=== PATIENT | female | born 1935 | race Caucasian/White ===

== ENCOUNTER 2016-10-02 08:34 | Day surgery (SDC) | payer MEDICARE, BC ==
[~2016-10-02 08:34] MED LIST: Lactated Ringers 1,000 ML IV SCH
[2016-10-02] MEDS ORDERED: Citric Acid/Sodium Citrate Solution 30 ML Cup PO ONE (10:43)
[2016-10-02] MEDS ORDERED: Propofol 200 MG/20 ML SDV ONE ×2 (10:55→11:52)
[2016-10-02 12:57] VITALS: BP 140/63
--- NOTE | 2016-10-02 20:37 | OR ---
PREOPERATIVE DIAGNOSIS: Esophageal stricture with dysphagia. POSTOPERATIVE DIAGNOSES: Esophageal stricture, hiatal hernia, and dilation to 20 mm. PROCEDURE PROPOSED: Esophagogastroduodenoscopy. PROCEDURE DONE: 1. Esophagogastroduodenoscopy. 2. Endoscopic esophageal balloon dilatation. INDICATION: This is an 81-year-old female with known esophageal problems. She has been dilated 2 or 3 times previously and the last one was about close to 2 years ago. She has been having some dysphagia now for the last several months with food sticking in, need for regurgitation, and was felt and she needs to be re-scoped. TECHNIQUE: The patient was in the endoscopy suite in the left lateral decubitus position. She was sedated per STAVE CUTTER with propofol. The flexible video gastroscope was then passed transorally and under visualization advanced well into the duodenum. The duodenum and the duodenal bulb were unremarkable. The antrum and body of the stomach looked quite normal and healthy. She did have a small hiatal hernia and an esophageal stricture that I felt needed to be dilated. Under endoscopic guidance, a balloon dilator was passed sized 18 mm to 20 mm. I then had my expanded function dental assistant inflate the balloon with saline to the 18 mm tyler and held there for a while followed by the 19 mm tyler and then dilated around to 20 mm. There was some fracturing of the stenosis with some mild bleeding. She seemed to tolerate the procedure very well. The scope and balloon were then removed and the remainder of esophagus was normal. FINAL DIAGNOSIS: 1. Esophageal stricture with hiatal hernia. 2. Balloon dilatation to 20 mm. PLAN: The patient is already on Prilosec and needs to keep taking that and potentially may need repeat dilatation in the future. PREOPERATIVE DIAGNOSIS: History of colon cancer, 27 years ago. POSTOPERATIVE DIAGNOSES: Colonic polyps x2; and mild diverticulosis. PROCEDURE PROPOSED: Total flexible colonoscopy. PROCEDURE DONE: Total flexible colonoscopy with polypectomy x2. INDICATION: This is an 81-year-old female, who has been evaluated because of a history of colon cancer. She has had multiple colonoscopies, her last one was probably 3 to 4 years ago. TECHNIQUE: The patient was already sedated per STAVE CUTTER with propofol. The flexible video colonoscope was then passed transanally and under visualization was advanced through the previous anastomosis area in the sigmoid colon from previous sigmoid resection. I then advanced the scope all the way to the cecum. Examination revealed a normal ascending and transverse colon. In the descending colon, at about 65 cm, there was an adenomatous polyp, removed by hot snare technique and retrieved with suction. There was a second polyp at about 40 cm, again probably in the descending colon, removed by hot snare technique and retrieved with suction. The anastomosis appeared to be at about 15 cm margin from previous sigmoid resection. She did have some diverticulosis in that area, but no signs of any cancer or other worrisome findings. The scope was then withdrawn. The patient tolerated the procedure well. IMPRESSION: 1. Left colon polyps x2, removed. 2. History of previous sigmoid resection for colon cancer. 3. Mild diverticulosis. PLAN: She will be sent a letter with Pathology report on the polyps, but I felt that at her age, she does not need any future colonoscopic exams. SCM: 10/02/2016 12:19:16 MODL: 10/02/2016 16:27:55 /[id number]
--- NOTE | 2016-10-16 11:27 | LETTER ---
10/16/2016 Antonette Linares RE: ANTONETTE LINARES : 1935 Dear Antonette, The polyps removed from your colon were benign tubular adenomas. These are considered precancerous-type polyps, but they were small, and there were no worrisome changes within the polyps and based on your age, I do not feel you need any future examinations. Respectfully,
== END 2016-10-02 13:40 | disposition home or self-care (01) ==
LOC: VM.SDS 08:34
PROVIDERS: ATTEND Surgery
DX: D12.6 Benign neoplasm of colon, unspecified (principal); K22.2 Esophageal obstruction; K44.9 Diaphragmatic hernia without obstruction or gangrene; K57.30 Diverticulosis of large intestine without perforation or abscess without bleeding; Z86.010 Personal history of colon polyps; I10 Essential (primary) hypertension; E78.5 Hyperlipidemia, unspecified; K21.9 Gastro-esophageal reflux disease without esophagitis; F41.9 Anxiety disorder, unspecified; E55.9 Vitamin D deficiency, unspecified; Z88.2 Allergy status to sulfonamides; Z88.8 Allergy status to other drugs, medicaments and biological substances; Z79.82 Long term (current) use of aspirin; Z79.899 Other long term (current) drug therapy; Z90.49 Acquired absence of other specified parts of digestive tract; Z90.710 Acquired absence of both cervix and uterus; Z96.612 Presence of left artificial shoulder joint; Z96.611 Presence of right artificial shoulder joint
CPT/HCPCS: 00810; 43249; 45385; A9270; C1726; J2704; J7120; 88305

== ENCOUNTER 2017-10-09 07:44 | Day surgery (SDC) | payer MEDICARE, BC ==
[2017-10-09] MEDS ORDERED: Propofol 200 MG/20 ML SDV ONE ×2 (08:52→10:00)
[2017-10-09 11:27] VITALS: BP 159/73
--- NOTE | 2017-10-09 12:50 | OR ---
DATE OF SURGERY: 10/09/2017. REFERRING PROVIDER: Elen Pham MD. PRE-OPERATIVE DIAGNOSES: 1. History of colon cancer of the sigmoid colon, back in 1979. 2. History of polyps. 3. Increased CEA level recently. The patient's last colonoscopy was on 09/2016. POST-OPERATIVE DIAGNOSES: 1. Moderate internal and external hemorrhoids. 2. Minimal diverticulosis. 3. Otherwise, normal colon and distal ilium. PROCEDURE: Procedure. SURGEON: Broderick Salgado M.D. ANESTHESIA: Monitored anesthesia care. BOWEL PREP: Good. Mariella is an 82-year-old female who was brought to the endoscopy suite after discussing risks and benefits of the procedure. Informed consent was obtained for conscious sedation and colonoscopy with or without biopsy and/or polypectomy. We also discussed possibility of missed lesions. Pre-procedure exam was unremarkable. IV, oxygen, and monitors were placed. The patient was placed in the left lateral decubitus position. Sedation was administered and a digital rectal exam was remarkable for moderate external hemorrhoids, not acutely inflamed. Colonoscope was passed into the rectum and slowly advanced all the way to the cecum. Cecum was viewed and photographed. Distal ileum was intubated and normal in appearance. The patient did have some minimal scattered diverticulosis on the way out. The colonoscope was slowly withdrawn and the mucosa was closed observed in a direct circumferential manner. The ascending colon was unremarkable. The transverse colon was unremarkable. The descending colon was unremarkable. The sigmoid colon was unremarkable. Retroflexion was performed and rectal mucosa was remarkable for some moderate internal hemorrhoids, not acutely inflamed. Scope was removed. The patient tolerated the procedure well. The patient was monitored until that baseline status. Discharge instructions were reviewed and the patient was discharged in good condition. COMPLICATIONS: None. TOTAL TIME: 16 minutes. ESTIMATED BLOOD LOSS: None. RECOMMENDATIONS/FOLLOW-UP: The patient can likely be done with colonoscopies at this point barring any significant change in stool symptoms. I would like to kindly thank, Dr. Pham, for this referral. DMB: 10/09/2017 10:55:49 MODL: 10/09/2017 12:41:05 /[id number]
--- NOTE | 2017-10-09 15:06 | OR ---
SURGERY DATE: 10/09/2017. REFERRING PROVIDER: Elen Pham MD. PRE-OPERATIVE DIAGNOSES: 1. History of hiatal hernia with gastroesophageal reflux disease despite being on omeprazole 20 mg daily. 2. Dysphagia, chronic, recurrent. The patient subjectively feels this in the upper chest area. She is status post balloon dilatation in 09/2016 for esophageal stricture. Symptoms seem to be worse at night. POST-OPERATIVE DIAGNOSES: 1. A 3 to 4 cm sliding-type hiatal hernia noted with lower esophageal stricture at the proximal end of the hiatal hernia. There was some mild esophagitis noted to this area as well. Balloon dilation was performed from 18 up to 19 mm. 2. 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 Biopsies taken from the mid esophagus. 3. Antral biopsies taken for Helicobacter pylori and path. Some minimal bile reflux noted in the stomach. PROCEDURE: EGD with cold biopsy x2 locations (antrum and midesophagus) using cold forceps. Balloon dilatation also performed to lower esophageal stricture up to 19 mm in diameter. SURGEON: Broderick Salgado M.D. ANESTHESIA: Monitored anesthesia care. DESCRIPTION OF PROCEDURE: Mariella is an 82-year-old female, who was brought to the endoscope suite after discussion of risks and benefits (including but not limited to reaction to medication, bleeding, infection, aspiration, perforation). Informed consent was obtained for monitored anesthesia care and esophagogastroduodenoscopy along with possible biopsy and/or dilatation. Pre-procedure exam including oral cavity was unremarkable. IV, oxygen, and monitors were placed. Topical anesthesia consisting of Cetacaine spray was used in the pharynx. Patient was placed in the left lateral position and sedation was administered. A bite block was placed gently and scope lightly lubricated and passed through the bite block and over the tongue. Hypopharynx and vocal cords were visualized and unremarkable. Scope was passed in the distal esophagus. The scope was then passed through the distal esophagus and the GE junction was visualized and photographed. The GE junction was remarkable for 3 to 4 cm sliding-type hiatal hernia with mild esophageal stricture as well as mild esophagitis noted at the Z-line. On the way out, balloon dilation was performed from 18 mm up to 19 mm. The area did become mildly irritated, so we did not dilate any further. Vocal cords were visualized and unremarkable. The scope was advanced into the stomach and gastric haas was suctioned. Pylorus was identified and intubated and then the scope was advanced to the third portion of the duodenum. The second and third portions of duodenum were unremarkable. Duodenal bulb visualized and unremarkable. The duodenal bulb was visualized and unremarkable. The scope was brought back into the stomach. The pylorus and antrum were unremarkable. Biopsies taken for H. pylori and path. The scope was retroflexed to visualize the angularis, fundus, body, and cardia. These were unremarkable except it did show a good view of the sliding-type hiatal hernia. The stomach was desufflated of air and then the scope was slowly withdrawn, and the esophagus was closely visualized during withdrawal all the way into the posterior pharynx. The mid esophagus did reveal some glycogenic acanthosis. Biopsies taken of the midesophagus to check for any eosinophilic esophagitis. The patient tolerated the procedure well and went to recovery in stable condition. The patient was monitored until at baseline status. Findings and discharge instructions were reviewed and the patient was discharged in good condition. COMPLICATIONS: None. TOTAL TIME: 18 minutes. ESTIMATED BLOOD LOSS: 1 to 2 mL. RECOMMENDATIONS/FOLLOW-UP: We will await results of path reports. I would like to have the patient increase her Prilosec to 20 mg twice a day for better control of evening and nighttime symptoms and help resolve her mild esophagitis seen as well as to prevent recurrent esophageal stricture. We will have the patient hold her aspirin for 3 days just to limit any chance of bleeding. I would like to thank Dr. Pham for this referral. DMB: 10/09/2017 10:51:56 MODL: 10/09/2017 13:01:01 /[id number]
== END 2017-10-09 13:05 | disposition home or self-care (01) ==
LOC: VM.SDS 07:44
PROVIDERS: ATTEND Family Medicine
DX: Z12.11 Encounter for screening for malignant neoplasm of colon (principal); K57.30 Diverticulosis of large intestine without perforation or abscess without bleeding; K64.8 Other hemorrhoids; K64.4 Residual hemorrhoidal skin tags; K22.2 Esophageal obstruction; K22.8 Other specified diseases of esophagus; K29.50 Unspecified chronic gastritis without bleeding; K44.9 Diaphragmatic hernia without obstruction or gangrene; I10 Essential (primary) hypertension; E78.00 Pure hypercholesterolemia, unspecified; K21.9 Gastro-esophageal reflux disease without esophagitis; F41.9 Anxiety disorder, unspecified; F51.01 Primary insomnia; E55.9 Vitamin D deficiency, unspecified; Z85.038 Personal history of other malignant neoplasm of large intestine; Z86.010 Personal history of colon polyps; Z79.82 Long term (current) use of aspirin; Z79.899 Other long term (current) drug therapy; Z88.2 Allergy status to sulfonamides; Z88.8 Allergy status to other drugs, medicaments and biological substances; Z98.890 Other specified postprocedural states
CPT/HCPCS: 00813; 43239; 43249; G0105; J2704; J7120

== ENCOUNTER 2020-08-15 14:42 | Emergency (ER) | payer MEDICARE, BC ==
[2020-08-15 14:49] VITALS: BP 120/70; PULSE 93
--- NOTE | 2020-08-16 21:35 | EDM.PDOC ---
ED HPI GENERAL MEDICAL PROBLEM - General Chief Complaint: Upper Extremity Injury/Pain Stated Complaint: FELL LACERATION TO HAND Time Seen by Provider: 08/15/20 14:50 Source of Information: Reports: Patient History Limitations: Reports: No Limitations - History of Present Illness INITIAL COMMENTS - FREE TEXT/NARRATIVE: Patient comes emergency department today with complaints of a fall. Just prior to arrival the patient was at home when she reports that she lost her balance fell landing on her left hand. She did hit her left cheek on the ground as well. She did not lose conscious. She has no head neck or back pain. She has no visual acuity change just. Prior to her fall she did not have any weakness dizziness lightheadedness potation's or syncope. She has been asymptomatic prior to her fall. She just feels like she lost her balance tripped and fell. She complains of a skin tear to her left wrist and her left thumb. She denies any pain of her hand wrist or forearm. No visual acuity changes. No nausea no vomiting. No confusion. No paresthesias of her upper or lower extremities. No change in the functionality of her upper or lower extremities. Right Head Pain Score (Numeric/FACES): 2 - Related Data Allergies Allergy/AdvReac Type Severity Reaction Status Date / Time magnesium citrate Allergy Cannot Verified 08/15/20 14:51 [From Citroma] Remember Sulfa (Sulfonamide Allergy Rash Verified 08/15/20 14:51 Antibiotics) Home Meds: Home Meds Aspirin [Halfprin] 81 mg PO DAILY 08/05/13 [History] Benazepril [Lotensin] 10 mg PO DAILY 08/05/13 [History] Cholecalciferol (Vitamin D3) [Vitamin D] 1,000 units PO DAILY 08/05/13 [History] Docusate Sodium [Colace] 100 mg PO ASDIRECTED PRN 08/05/13 [History] Lutein/Minerals/Vit A,C & E [Ocuvite] 1 tab PO DAILY 08/05/13 [History] Omeprazole 20 mg PO DAILY 08/05/13 [History] Triamterene/Hydrochlorothiazid [Dyazide 37.5-25] 1 cap PO DAILY 08/05/13 [History] allopurinoL [Zyloprim] 100 mg PO DAILY 08/05/13 [History] ALPRAZolam [Xanax] 0.25 mg PO ASDIRECTED 09/30/16 [History] Acetaminophen/Diphenhydramine [Tylenol Pm Ex-Strength Caplet] 2 tab PO BEDTIME 09/30/16 [History] Past Medical History HEENT History: Reports: Cataract Cardiovascular History: Reports: High Cholesterol, Hypertension Respiratory History: Reports: None Gastrointestinal History: Reports: Chronic Constipation, Colon Polyp, Diverticulosis, Fecal Incontinence, GERD, Hiatal Hernia Other Gastrointestinal History: malignant neoplasm of colon,. 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 FATIGUE Neurological History: Reports: None Psychiatric History: Reports: Anxiety Other Psychiatric History: insomnia, anorexia, claustrophobia. INSOMNIA. CLAUSTROPHOBIA Endocrine/Metabolic History: Reports: Vitamin D Deficiency Other Hematologic History: vit d deficiency Immunologic History: Reports: None Oncologic (Cancer) History: Reports: Cervix, Colon Dermatologic History: Reports: None - Past Surgical History Head Surgeries/Procedures: Reports: None Cardiovascular Surgical History: Reports: None GI Surgical History: Reports: Appendectomy, Cholecystectomy, Colon, Colonoscopy, EGD Female Surgical History: Reports: Breast Biopsy, Hysterectomy Endocrine Surgical History: Reports: None Musculoskeletal Surgical History: Reports: Carpal Tunnel, Shoulder Replacement, Shoulder Surgery, Other (See Below) Other Musculoskeletal Surgeries/Procedures:: TRIGGER FINGER RELEASE Oncologic Surgical History: Reports: Biopsy of Breast Social & Family History - Tobacco Use Tobacco Use Status *Q: Unknown Ever Used Tobacco Review of Systems - Review of Systems Review Of Systems: Comprehensive ROS is negative, except as noted in HPI. ED EXAM, GENERAL - Physical Exam Exam: See Below Exam Limited By: No Limitations General Appearance: Alert, WD/WN, No Apparent Distress Eye Exam: Bilateral Eye: EOMI, PERRL Ears: Normal External Exam, Normal TMs Nose: Normal Inspection Throat/Mouth: Normal Inspection, Normal Lips, Normal Oropharynx, Normal Voice Head: Atraumatic, Normocephalic, Other (other than a small ecchymotic region on the left zygomatic arch. There is no bruising swelling ecchymosis bony deformity or crepitus. Rest of the face is atraumatic.) Neck: Normal Inspection, Supple, Non-Tender, Full Range of Motion. No: Tender Lateral, Tender Midline Respiratory/Chest: No Respiratory Distress, Lungs Clear, Chest Non-Tender Cardiovascular: Normal Peripheral Pulses, Regular Rate, Rhythm GI/Abdominal: Normal Bowel Sounds, Soft, Non-Tender Back Exam: Normal Inspection, Full Range of Motion Extremities: Normal Range of Motion, No Pedal Edema, Normal Capillary Refill, Other (Similarly to the left thumb there is a 1.5 cm superficial skin tear with some ecchymosis surrounding it. She is able to flex and extend at the MCP joint and IP joint of the left thumb. CMS is intact appropriately. There is no bony deformities tenderness or crepitus.). No: Normal Inspection (On the dorsal aspect of the left wrist there is a transverse 2.5 cm superficial skin tear with some ecchymosis around it. She is able to flex and extend at the wrist. There is no swelling or pain in the wrist.) Neurological: Alert, Oriented, CN II-XII Intact, Normal Cognition, Normal Gait, No Motor/Sensory Deficits Psychiatric: Normal Affect, Normal Mood Skin Exam: Warm, Dry, Intact, Normal Color, No Rash Lymphatic: No Adenopathy ED TRAUMA EXTREMITY PROCEDURES - Laceration/Wound Repair Left Digit - 5th (Baby) Lac/Wound Length In cm: 1.5 Appearance: Superficial (skin tear), Clean Distal NVT: Neuro & Vascular Intact Closed With: Steri-Strips Tetanus Status Addressed: Yes Left Wrist Lac/Wound Length In cm: 2.5 Appearance: Superficial (skin tear) Distal NVT: Neuro & Vascular Intact Closed With: Steri-Strips Course - Vital Signs Last Recorded V/S: Last Vital Signs Temp 97.9 F 08/15/20 14:44 Pulse 93 08/15/20 14:44 Resp 16 08/15/20 14:44 BP 120/70 08/15/20 14:44 Pulse Ox 100 08/15/20 14:44 Departure - Departure Time of Disposition: 16:00 Disposition: Home, Self-Care 01 Clinical Impression: Skin tear, Facial contusion Fall Qualifiers: Encounter type: initial encounter Qualified Code(s): W19.XXXA - Unspecified fall, initial encounter - Discharge Information Referrals: Elen Pham MD [Primary Care Provider] - Forms: ED Department Discharge Additional Instructions: See written discharge instructions. Sepsis Event Note (ED) - Evaluation Sepsis Screening Result: No Definite Risk
== END 2020-08-15 15:40 | disposition home or self-care (01) ==
LOC: VM.ED 14:42
DX: S61.217A Laceration without foreign body of left little finger without damage to nail, initial encounter (principal); S00.83XA Contusion of other part of head, initial encounter; E78.00 Pure hypercholesterolemia, unspecified; I10 Essential (primary) hypertension; K21.9 Gastro-esophageal reflux disease without esophagitis; Z79.82 Long term (current) use of aspirin; Z79.899 Other long term (current) drug therapy; Z88.2 Allergy status to sulfonamides; Z88.8 Allergy status to other drugs, medicaments and biological substances; W18.09XA Striking against other object with subsequent fall, initial encounter; Y92.009 Unspecified place in unspecified non-institutional (private) residence as the place of occurrence of the external cause
CPT/HCPCS: 99283

== ENCOUNTER 2023-05-15 10:26 | Inpatient (IN) | payer MEDICARE, OTHER ==
[2023-05-15 11:57] LABS: APPEARANCE,URINE CLOUDY (CLEAR); BILIRUBIN,URINE NEGATIVE (NEGATIVE); COLOR,URINE YELLOW (YELLOW); GLUCOSE,URINE NEGATIVE (NEGATIVE); KETONES,URINE NEGATIVE (NEGATIVE); LEUKOCYTE ESTERASE,URINE TRACE (NEGATIVE); NITRITE,URINE POSITIVE (NEGATIVE); OCCULT BLOOD,URINE TRACE-INTACT (NEGATIVE); PROTEIN,URINE NEGATIVE (NEGATIVE); UROBILINOGEN,URINE 0.2 EU/dL (0.2)
[2023-05-15 12:08] LABS: BACTERIA,URINE MODERATE /HPF (NOT SEEN); RBC,URINE 0-5 /HPF (NOT SEEN); SQUAMOUS EPITHELIAL CELLS,UR MODERATE /HPF (NOT SEEN)
[2023-05-15] MEDS: Sodium Chloride 0.9% 1,000 ML IV SCH (12:39)
[2023-05-15] MEDS: Nitrofurantoin Monohydrate/Macrocrystalline 100 MG Cap PO SCH (15:28)
[2023-05-15] MEDS: Acetaminophen 325 MG Tab PO PRN (15:38)
[2023-05-15] MEDS: Omeprazole 20 MG Cap.CR PO SCH (17:06)
[2023-05-15] MEDS: Melatonin 3 MG Tab PO SCH (20:13)
[2023-05-16 05:07] LABS: % TRANSFERRIN SAT 14.7 % (20.0-50.0)
[2023-05-16 06:58] LABS: BASOPHILS PERCENT AUTO 0.3 % (0.2-1.2); EOSINOPHILS ABSOLUTE AUTO 0.1 x10^3/uL (0.0-0.5); EOSINOPHILS PERCENT AUTO 3.5 % (0.0-4.0); HEMATOCRIT 28.6 % (33.0-47.0); HEMOGLOBIN 9.6 g/dL (12.0-16.0); IMMATURE GRAN ABSOLUTE AUTO 0.01 x10^3/uL (0.00-0.07); LYMPHOCYTES ABSOLUTE AUTO 0.9 x10^3/uL (1.0-4.8); LYMPHOCYTES PERCENT AUTO 22.6 % (25.0-50.0); MEAN CORPUSCULAR HEMOGLOBIN 32.5 pg (26.0-32.0); MEAN CORPUSCULAR HGB CONC 33.6 g/dL (32.0-36.0); MEAN CORPUSCULAR VOLUME 96.9 fL (78.0-93.0); MONOCYTES ABSOLUTE AUTO 0.4 x10^3/uL (0.0-0.8); MONOCYTES PERCENT AUTO 10.4 % (2.0-11.0); NEUTROPHILS ABSOLUTE AUTO 2.4 x10^3/uL (1.8-7.7); NEUTROPHILS PERCENT AUTO 62.9 % (50.0-80.0); PLATELET COUNT,PLT 149 x10^3/uL (130-400); RED BLOOD CELL COUNT 2.95 x10^6/uL (4.00-5.50); WHITE BLOOD CELL COUNT,WBC 3.8 x10^3/uL (4.0-10.0)
[2023-05-16 07:10] LABS: CALCIUM 8.6 mg/dL (8.5-10.1); CREATININE 0.6 mg/dL (0.55-1.02); EST CRCL DRUG DOSING (CG) 47.45 mL/min; MAGNESIUM 1.4 mg/dL (1.8-2.4); POTASSIUM,K 3.6 mmol/L (3.5-5.1)
[2023-05-16 07:15] LABS: ANION GAP 11.6 mmol/L (5-15)
[2023-05-16] MEDS ORDERED: Bisacodyl 10 MG Supp RECTAL PRN (08:41)
[2023-05-16] MEDS ORDERED: Sodium Chloride 0.9% 10 ML Syringe FLUSH PRN (08:42)
[2023-05-16] MEDS: Potassium Chloride 10 MEQ Tab.ER PO SCH (08:53)
[2023-05-16] MEDS: Cyanocobalamin (Vitamin B12) 1,000 MCG Tab PO SCH (08:53)
[2023-05-16] MEDS: Beta-Carotene (Vitamin A) w/Vitamin C & E plus Minerals Tab PO SCH (08:53)
[2023-05-16] MEDS: Aspirin 81 MG Tab.EC PO SCH (08:53)
[2023-05-16] MEDS: Ferrous Sulfate 325 MG Tab PO SCH (08:53)
[2023-05-16] MEDS: Allopurinol 100 MG Tab PO SCH (08:54)
[2023-05-16] MEDS: Docusate Sodium 100 MG Cap PO SCH (09:31)
[2023-05-16] MEDS: Magnesium Oxide 400 MG Tab PO SCH (11:59)
[2023-05-16] MEDS: Loperamide 2 MG Cap PO PRN (16:27)
[2023-05-16] MEDS: Meclizine 25 MG Tab PO PRN (20:02)
[2023-05-17 08:24] LABS: BASOPHILS PERCENT AUTO 0.3 % (0.2-1.2); EOSINOPHILS ABSOLUTE AUTO 0.1 x10^3/uL (0.0-0.5); HEMATOCRIT 31.3 % (33.0-47.0); HEMOGLOBIN 10.5 g/dL (12.0-16.0); IMMATURE GRAN ABSOLUTE AUTO 0.01 x10^3/uL (0.00-0.07); LYMPHOCYTES ABSOLUTE AUTO 0.8 x10^3/uL (1.0-4.8); LYMPHOCYTES PERCENT AUTO 13.3 % (25.0-50.0); MEAN CORPUSCULAR HEMOGLOBIN 32.7 pg (26.0-32.0); MEAN CORPUSCULAR HGB CONC 33.5 g/dL (32.0-36.0); MEAN CORPUSCULAR VOLUME 97.5 fL (78.0-93.0); MONOCYTES ABSOLUTE AUTO 0.4 x10^3/uL (0.0-0.8); MONOCYTES PERCENT AUTO 7.1 % (2.0-11.0); NEUTROPHILS ABSOLUTE AUTO 4.6 x10^3/uL (1.8-7.7); NEUTROPHILS PERCENT AUTO 77.1 % (50.0-80.0); PLATELET COUNT,PLT 194 x10^3/uL (130-400); RED BLOOD CELL COUNT 3.21 x10^6/uL (4.00-5.50); WHITE BLOOD CELL COUNT,WBC 5.9 x10^3/uL (4.0-10.0)
[2023-05-17 08:53] LABS: A/G RATIO 0.97; BILIRUBIN TOTAL 0.5 mg/dL (0.2-1.0); CALCIUM 9.1 mg/dL (8.5-10.1); CREATININE 0.7 mg/dL (0.55-1.02); EST CRCL DRUG DOSING (CG) 40.67 mL/min; MAGNESIUM 1.4 mg/dL (1.8-2.4); POTASSIUM,K 3.6 mmol/L (3.5-5.1); PROTEIN TOTAL,TP 6.1 g/dL (6.4-8.2)
[2023-05-17 09:00] LABS: ANION GAP 12.6 mmol/L (5-15)
[2023-05-17] MEDS: Lisinopril 10 MG Tab PO SCH (14:01)
[2023-05-18] MEDS: Ibuprofen 200 MG Tab PO PRN (04:09)
[2023-05-18 11:02] VITALS: BP 131/61; PULSE 63
[2023-05-19] MEDS ORDERED: Nitrofurantoin Monohydrate/Macrocrystalline 100 MG Cap PO ONE (10:45)
== END 2023-05-18 12:48 | disposition home or self-care (01) | DRG 312 ==
LOC: VM.MS 10:29
PROVIDERS: ADMIT Family Medicine; ATTEND Family Medicine
DX: I95.1 Orthostatic hypotension (principal); N39.0 Urinary tract infection, site not specified; D64.9 Anemia, unspecified; R29.6 Repeated falls; I10 Essential (primary) hypertension; M81.0 Age-related osteoporosis without current pathological fracture; F41.9 Anxiety disorder, unspecified; F32.A Depression, unspecified; E78.00 Pure hypercholesterolemia, unspecified; M54.50 Low back pain, unspecified; B96.20 Unspecified Escherichia coli [E. coli] as the cause of diseases classified elsewhere; K21.9 Gastro-esophageal reflux disease without esophagitis; G89.29 Other chronic pain; G47.00 Insomnia, unspecified; E86.0 Dehydration; D50.9 Iron deficiency anemia, unspecified; E66.9 Obesity, unspecified; Z96.611 Presence of right artificial shoulder joint; Z96.612 Presence of left artificial shoulder joint; Z88.2 Allergy status to sulfonamides; Z85.038 Personal history of other malignant neoplasm of large intestine; Z88.8 Allergy status to other drugs, medicaments and biological substances; Z79.899 Other long term (current) drug therapy; Z90.710 Acquired absence of both cervix and uterus; Z90.721 Acquired absence of ovaries, unilateral; Z90.49 Acquired absence of other specified parts of digestive tract; Z98.890 Other specified postprocedural states; Z68.29 Body mass index [BMI] 29.0-29.9, adult
CPT/HCPCS: 36415; 70450; 73010-RT; 80048; 80053; 81001; 82550; 82728; 83540; 83550; 83735; 83880; 85025; 87086; 87088; 87186; 93005; 97161-GP; 97165-GO; 97530-GO; 97535-GO; A9270-GY; G0328; J7030